=== PATIENT | female | born 1995 | race Caucasian/White ===

== ENCOUNTER 2024-06-28 18:43 | Emergency (ER) | payer OTHER ==
[~2024-06-28] VITALS: Ht 160 cm; Wt 88.5 kg
[2024-06-28] MEDS ORDERED: FAMOTIDINE/PF INJ 20 MG/2 ML VIAL IV ONE (21:12)
[2024-06-28] MEDS ORDERED: ONDANSETRON HCL/PF 4 MG/2 ML VIAL ONE (21:12)
[2024-06-28 21:16] LABS: BASOPHILS % (AUTO) 0.4 % (0.0-2.0); EOSINOPHILS % (AUTO) 0.1 % (0.0-6.0); HEMATOCRIT 39 % (33-45); HEMOGLOBIN 12.8 g/dL (11.5-14.8); LYMPHOCYTES # (AUTO) 1.5 K/uL (0.8-4.8); LYMPHOCYTES % (AUTO) 20.2 % (20.0-44.0); MEAN CORPUSCULAR HEMOGLOBIN 28 PG (26.0-33.0); MEAN CORPUSCULAR HGB CONC 33 g/dl (31.0-36.0); MEAN CORPUSCULAR VOLUME 83 fL (82-100); MONOCYTES # (AUTO) 0.5 K/uL (0.1-1.30); MONOCYTES % (AUTO) 6.6 % (2.0-12.0); NEUTROPHILS # (AUTO) 5.3 K/uL (1.8-8.9); NEUTROPHILS % (AUTO) 72.7 % (43.0-81.0); PLATELET COUNT (AUTO) 270 K/uL (150-450); RED BLOOD CELL COUNT(AUTO) 4.64 MIL/uL (4.0-5.2); RED CELL DISTRIBUTION WIDTH 15.2 % (11.5-15.0); WHITE BLOOD COUNT (AUTO) 7.3 K/uL (4.3-11.0)
[2024-06-28] MEDS: FAMOTIDINE/PF INJ 20 MG/2 ML VIAL IV ONE (21:21)
[2024-06-28] MEDS: IV NS 0.9% 1,000 ML BAG IV ONE (21:21)
[2024-06-28] MEDS: ONDANSETRON HCL/PF 4 MG/2 ML VIAL IVP ONE (21:21)
[2024-06-28 21:35] LABS: CALCIUM, SERUM 8.2 mg/dL (8.5-10.1); CREATININE 0.7 mg/dL (0.6-1.3); POTASSIUM 3.1 mmol/L (3.5-5.1)
[2024-06-28 21:40] LABS: ALBUMIN 3.6 g/dL (3.4-5.0); BILIRUBIN,DIRECT 0.2 mg/dL (0.0-0.2); BILIRUBIN,TOTAL 1.3 mg/dL (0.2-1.0); TOTAL PROTEIN, SERUM 7.3 g/dL (6.4-8.2)
[2024-06-28] MEDS: POTASSIUM CHLORIDE 20 MEQ TAB.PRT.SR PO ONE (22:13)
[2024-06-28] MEDS ORDERED: ONDA4TAB5 PO (22:29)
[2024-06-28] MEDS ORDERED: FAMO20TA8 PO (22:29)
[2024-06-28 22:41] VITALS: BP 132/78; TEMP 98.3; O2SAT 98
== END 2024-06-28 22:41 | disposition home or self-care (01) ==
LOC: ER 18:47
DX: R11.2 Nausea with vomiting, unspecified (principal); R10.13 Epigastric pain; Z87.19 Personal history of other diseases of the digestive system; Z88.0 Allergy status to penicillin; Z60.2 Problems related to living alone
CPT/HCPCS: 99284; 96374; 96361; 96375; 85025; 80048; 83690; 80076; 36415; J3490; J2405; J7030